=== PATIENT | male | born 1990 | race Caucasian/White ===

== ENCOUNTER 2021-02-16 14:57 | Emergency (ER) | payer MEDICAID ==
[~2021-02-16] VITALS: Ht 185.4 cm; Wt 81.8 kg
[~2021-02-16 14:57] MED LIST: IBUP-1051 PO; IBUP-1984 PO; IBUP-1986 PO; NO HOME MEDS; ONDA4TAB59 PO; ONDA8TAB9 PO; RANI-648 PO
[2021-02-16 15:14] VITALS: BP 120/81
[2021-02-16] MEDS ORDERED: ibuprofen tablet 400 MG TABLET PO ONE (15:25)
== END 2021-02-16 16:06 | disposition home or self-care (01) ==
LOC: ER 14:57
DX: S40.011A Contusion of right shoulder, initial encounter (principal); S90.01XA Contusion of right ankle, initial encounter; S80.01XA Contusion of right knee, initial encounter; S30.810A Abrasion of lower back and pelvis, initial encounter; S80.212A Abrasion, left knee, initial encounter; M54.2 Cervicalgia; R51.9 Headache, unspecified; K21.9 Gastro-esophageal reflux disease without esophagitis; F17.200 Nicotine dependence, unspecified, uncomplicated; Z79.899 Other long term (current) drug therapy; Z88.2 Allergy status to sulfonamides; V89.2XXA Person injured in unspecified motor-vehicle accident, traffic, initial encounter; Y93.89 Activity, other specified; Y92.488 Other paved roadways as the place of occurrence of the external cause; Y99.8 Other external cause status
CPT/HCPCS: 73030; 73564; 73610; 99284

== ENCOUNTER 2022-11-28 13:54 | Emergency (ER) | payer MEDICAID ==
[~2022-11-28] VITALS: Ht 182.9 cm; Wt 72.7 kg
[2022-11-28 14:26] VITALS: BP 126/83
[2022-11-28] MEDS ORDERED: TRAM50TA2 PO (15:55)
[2022-11-28] MEDS ORDERED: AMOX-117 PO (15:55)
[2022-11-28] MEDS ORDERED: ORPH100T2 PO (15:55)
== END 2022-11-28 16:30 | disposition home or self-care (01) ==
LOC: ER 13:55
DX: M79.10 Myalgia, unspecified site (principal); H65.192 Other acute nonsuppurative otitis media, left ear; K21.9 Gastro-esophageal reflux disease without esophagitis; Z79.899 Other long term (current) drug therapy; Y04.8XXD Assault by other bodily force, subsequent encounter
CPT/HCPCS: 99283; L0172

== ENCOUNTER 2024-11-15 18:12 | Emergency (ER) | payer MEDICAID ==
[~2024-11-15] VITALS: Ht 182.9 cm; Wt 95.5 kg
[~2024-11-15 18:12] MED LIST changes: +ORPH100T4 PO
[2024-11-15 18:47] VITALS: TEMP 98.3
[2024-11-15] MEDS ORDERED: AMOX-117 PO (20:33)
[2024-11-15] MEDS ORDERED: IBUP-1985 PO (20:33)
[2024-11-15 21:08] VITALS: BP 124/84; PULSE 86; RESP 16; O2SAT 99
== END 2024-11-15 21:09 | disposition home or self-care (01) ==
LOC: ER 18:13
DX: H61.21 Impacted cerumen, right ear (principal); H66.92 Otitis media, unspecified, left ear; K21.9 Gastro-esophageal reflux disease without esophagitis; Z88.2 Allergy status to sulfonamides; Z79.1 Long term (current) use of non-steroidal anti-inflammatories (NSAID); Z79.899 Other long term (current) drug therapy
CPT/HCPCS: 69209; 99283